=== PATIENT | female | born 1995 | race Caucasian/White ===

== ENCOUNTER 2016-07-30 13:44 | Emergency (ER) | payer OTHER ==
--- NOTE | 2016-07-30 13:57 | EDPHY ---
H & P Stated Complaint: SVT, CP HPI/ROS: HPI CHIEF COMPLAINT: SVT, chest discomfort HISTORY OF PRESENT ILLNESS: This patient very pleasant 21-year-old female, presents emergency room with palpitations and chest discomfort. Patient tells me that she has longstanding history of SVT she often gets SVT once a week and it resolved on its own. She has seen a fell cutter for this and was recommended to be placed on a beta ángel however she declined to take the medication. She tells me that she has SVT once a week sometimes twice a week and is self-resolving it usually lasts 30 minutes to 2 hours. Patient tells me that she was at work she works as a intermodal dispatcher she was seated she developed SVT for 2 hours it resolved on its own however during the episode of SVT she had discomfort in her chest. She describes initially as a discomfort checked the pressure in her chest however then developed significant sharp stabbing pain. It is since resolved. She decided to come to the emergency room due to discomfort and chest she does not usually have with her SVT. No history of PE or DVT. No history recent illness. No history of fever. No cough, no hemoptysis. Does not have pleuritic pain. Past Medical History: SVT Past Surgical History: no recent surgery Social History: Denies daily use of drugs alcohol tobacco products, works as a intermodal dispatcher [employer] [facility] Family History: noncontributory ROS REVIEW OF SYSTEMS: A comprehensive 10 point review of systems is otherwise negative aside from elements mentioned in the history of present illness. Exam Constitutional appears well nontoxic, triage nursing summary reviewed, vital signs reviewed, awake/alert. Eyes normal conjunctivae and sclera, EOMI, PERRLA. HENT normal inspection, atraumatic, moist mucus membranes, no epistaxis, neck supple/ no meningismus, no raccoon eyes. Respiratory clear to auscultation bilaterally, normal breath sounds, no respiratory distress, no wheezing. Cardiovascular rate normal, regular rhythm, no murmur, no edema, distal pulses normal. Gastrointestinal soft, non-tender, no rebound, no guarding, normal bowel sounds, no distension, no pulsatile mass. Genitourinary no CVA tenderness. Musculoskeletal no midline vertebral tenderness, full range of motion, no calf swelling, no tenderness of extremities, no meningismus, good pulses, neurovascularly intact. Skin pink, warm, & dry, no rash, skin atraumatic. Neurologic awake, alert and oriented x 3, AAOx3, moves all 4 extremities equally, motor intact, sensory intact, CN II-XII intact, normal cerebellar, normal vision, normal speech. Psychiatric normal mood/affect. Heme/Lymph/Immune no lymphadenopathy. Differential Diagnosis: includes but is not limited to in a particular order SVT , pneumonia, pneumothorax, pulmonary embolism, atypical chest pain, soft gel spasm, gastritis, esophagitis, doubt acute coronary syndrome Medical Decision Making: Patient had an IV established will obtain blood work, patient will have a chest x-ray, D-dimer, troponin, EKG. She be placed on full school lunch monitor. She is not having chest pain at this time. No evidence SVT at this time. Re-evaluation: EKG interpretation by me on record in [facility] system. Impression time of EKG is 1402, this is sinus rhythm rate of 81 no acute ischemic changes specifically no ST elevation, ST depression, T-wave abnormalities prolonged intervals or signs of cardiac arrhythmia. 1522: re-examination at this time patient is resting comfortably. She has been on school lunch monitor for the entire time she has been in the emergency room there has been no evidence of SVT. Re-examination at this time she has no chest pain or shortness of breath. Blood work is reassuring with a negative D- dimer normal electrolytes. EKG nonischemic in no signs of arrhythmia. ED x-ray chest one view: Negative for acute cardiopulmonary disease. Image interpreted by myself. 1522: re-examination at this time she is resting comfortably no complaints no chest pain no shortness of breath no pleuritic pain EKG, troponin, D-dimer, chest x-ray reviewed and are negative. Do recommend she follows up with Cardiology outpatient for SVT possible Holter monitor possible beta-ángel. She agrees with this plan. She is comfortable being discharged however she understands to return to the ER she develops severe chest pain shortness of breath nausea vomiting or fever. Source: Patient - Personal History Tetanus Vaccine Date: WITHIN 10 YRS - Medical/Surgical History Hx Asthma: No Hx Chronic Respiratory Disease: No Hx Diabetes: No Hx Cardiac Disease: No Hx Renal Disease: No Hx Cirrhosis: No Hx Alcoholism: No Hx HIV/AIDS: No Hx Splenectomy or Spleen Trauma: No Other PMH: anxiety, SVT - Social History Smoking Status: Never smoked Constitutional: Initial Vital Signs Temperature (C) 36.9 C 07/30/16 13:50 Heart Rate 86 07/30/16 13:50 Respiratory Rate 18 07/30/16 13:50 Blood Pressure 125/76 H 07/30/16 13:50 O2 Sat (%) 96 07/30/16 13:50 O2 Delivery Mode Room Air Allergies/Adverse Reactions: No Known Allergies Allergy (Verified 03/31/14 16:58) Home Medications: Medication Instructions Recorded NK [No Known Home Meds] 03/31/14 Medical Decision Making - Data Points Laboratory Results: Laboratory Results 07/30/16 14:20 07/30/16 14:20 07/30/16 07/30/16 07/30/16 14:20 14:20 14:20 WBC RBC Hgb Hct MCV MCH MCHC RDW Plt Count MPV Neut % (Auto) Lymph % (Auto) [place] % (Auto) Eos % (Auto) Baso % (Auto) Nucleat RBC Rel Count Absolute Neuts (auto) Absolute Lymphs (auto) Absolute Monos (auto) Absolute Eos (auto) Absolute Basos (auto) Absolute Nucleated RBC Immature Gran % Immature Gran # D-Dimer < 0.27 ug/mLFEU ug/mLFEU (0.00-0.50) Sodium 142 mEq/L mEq/L (134-144) Potassium 4.1 mEq/L mEq/L (3.5-5.2) Chloride 107 mEq/L mEq/L (97-110) Carbon Dioxide 21 mEq/l L mEq/l (22-31) Anion Gap 14 mEq/L mEq/L (8-16) BUN 15 mg/dL mg/dL (7-23) Creatinine 0.8 mg/dL mg/dL (0.6-1.0) Estimated GFR > 60 Glucose 90 mg/dL mg/dL (70-100) Calcium 10.2 mg/dL mg/dL (8.5-10.4) Magnesium 2.0 mg/dL mg/dL (1.6-2.3) Total Bilirubin 0.5 mg/dL mg/dL (0.1-1.4) Conjugated Bilirubin 0.4 mg/dL mg/dL (0.0-0.5) Unconjugated Bilirubin 0.1 mg/dL mg/dL (0.0-1.1) AST 21 IU/L IU/L (14-46) ALT 30 IU/L IU/L (9-52) Alkaline Phosphatase 60 IU/L IU/L (38-126) Creatine Kinase 137 IU/L IU/L (0-156) CK-MB (CK-2) Fraction 0.39 ng/mL ng/mL (0-3.19) Troponin I < 0.012 ng/mL ng/mL (0-0.034) NT-Pro-B Natriuret Pep 30 pg/mL pg/mL (0-125) Total Protein 8.1 g/dL g/dL (6.3-8.2) Albumin 4.9 g/dL g/dL (3.5-5.0) Lipase 132.0 IU/L IU/L (23-300) Beta HCG, Qual NEGATIVE 07/30/16 14:20 WBC 10.57 10^3/uL H 10^3/uL (3.80-9.50) RBC 4.72 10^6/uL 10^6/uL (4.18-5.33) Hgb 14.6 g/dL g/dL (12.6-16.3) Hct 41.7 % % (38.0-47.0) MCV 88.3 fL fL (81.5-99.8) MCH 30.9 pg pg (27.9-34.1) MCHC 35.0 g/dL g/dL (32.4-36.7) RDW 12.2 % % (11.5-15.2) Plt Count 281 10^3/uL 10^3/uL (150-400) MPV 10.4 fL fL (8.7-11.7) Neut % (Auto) 79.6 % H % (39.3-74.2) Lymph % (Auto) 13.9 % L % (15.0-45.0) [place] % (Auto) 5.5 % % (4.5-13.0) Eos % (Auto) 0.3 % L % (0.6-7.6) Baso % (Auto) 0.4 % % (0.3-1.7) Nucleat RBC Rel Count 0.0 % % (0.0-0.2) Absolute Neuts (auto) 8.42 10^3/uL H 10^3/uL (1.70-6.50) Absolute Lymphs (auto) 1.47 10^3/uL 10^3/uL (1.00-3.00) Absolute Monos (auto) 0.58 10^3/uL 10^3/uL (0.30-0.80) Absolute Eos (auto) 0.03 10^3/uL 10^3/uL (0.03-0.40) Absolute Basos (auto) 0.04 10^3/uL 10^3/uL (0.02-0.10) Absolute Nucleated RBC 0.00 10^3/uL 10^3/uL (0-0.01) Immature Gran % 0.3 % % (0.0-1.1) Immature Gran # 0.03 10^3/uL 10^3/uL (0.00-0.10) D-Dimer Sodium Potassium Chloride Carbon Dioxide Anion Gap BUN Creatinine Estimated GFR Glucose Calcium Magnesium Total Bilirubin Conjugated Bilirubin Unconjugated Bilirubin AST ALT Alkaline Phosphatase Creatine Kinase CK-MB (CK-2) Fraction Troponin I NT-Pro-B Natriuret Pep Total Protein Albumin Lipase Beta HCG, Qual Medications Given: Discontinued Medications Sodium Chloride (Ns) 1,000 mls @ 0 mls/hr IV ONCE ONE PRN Reason: Wide Open Stop: 07/30/16 14:00 Last Admin: 07/30/16 14:29 Dose: 1,000 mls Departure - Departure Disposition: Home, Routine, Self-Care Clinical Impression: Palpitations Condition: Good Instructions: Palpitations (ED) Additional Instructions: 1. return to the emergency room if he develops any worsening symptoms questions or concerns includes worsening pain fever shortness of breath vomiting. 2. Stay well-hydrated. 3. Please follow up with Cardiology outpatient. Referrals: Roya Sosa MD [Primary Care Provider] - As per Instructions Ivelisse Baker MD [Medical Doctor] - As per Instructions
[2016-07-30] MEDS ORDERED: NS 1,000 ML IV ONE (13:59)
--- NOTE | 2016-07-30 14:04 | CPEKG ---
Heart Rate: 81 RR Interval: 741 P-R Interval: 124 QRSD Interval: 82 QT Interval: 388 QTC Interval: 451 P [place]: 47 QRS [place]: 68 T Wave [place]: 37 EKG Severity - NORMAL ECG - EKG Impression: SINUS RHYTHM Electronically Signed By: Aureliano Sandoval 30-Jul-2016 21:17:30
[2016-07-30 14:29] LABS: % IMMATURE GRANULYOCYTES 0.3 % (0.0-1.1); ABSOLUTE IMMATURE GRANULOCYTES 0.03 10^3/uL (0.00-0.10); ADD DIFF? NO; ADD MORPH? NO; ADD SCAN? NO; ATYPICAL LYMPHOCYTE FLAG 0 (0-99); FRAGMENT RBC FLAG 0 (0-99); HEMATOCRIT 41.7 % (38.0-47.0); HEMOGLOBIN 14.6 g/dL (12.6-16.3); LEFT SHIFT FLG 0 (0-99); LIPEMIA HEMOLYSIS FLAG 90 (0-99); MEAN CELL HEMOGLOBIN 30.9 pg (27.9-34.1); MEAN CELL VOLUME 88.3 fL (81.5-99.8); MEAN PLATELET VOLUME 10.4 fL (8.7-11.7); PLATELET CLUMPS FLAG 0 (0-99); PLATELET COUNT 281 10^3/uL (150-400); RED BLOOD CELL COUNT 4.72 10^6/uL (4.18-5.33); RED CELL DISTRIBUTION WIDTH 12.2 % (11.5-15.2)
[2016-07-30 14:44] LABS: ALANINE AMINOTRANSFERASE 30 IU/L (9-52); ALBUMIN 4.9 g/dL (3.5-5.0); ALKALINE PHOSPHATASE 60 IU/L (38-126); ANION GAP 14 mEq/L (8-16); ASPARTATE AMINOTRANSFERASE 21 IU/L (14-46); BILIRUBIN,TOTAL 0.5 mg/dL (0.1-1.4); BILIRUBIN-CONJUGATED 0.4 mg/dL (0.0-0.5); BILIRUBIN-UNCONJUGATED 0.1 mg/dL (0.0-1.1); CALCIUM 10.2 mg/dL (8.5-10.4); CARBON DIOXIDE 21 mEq/l (22-31); CHLORIDE 107 mEq/L (97-110); CREATININE 0.8 mg/dL (0.6-1.0); GLOMERULAR FILTRATION RATE > 60; GLUCOSE 90 mg/dL (70-100); POTASSIUM 4.1 mEq/L (3.5-5.2); SODIUM 142 mEq/L (134-144); TOTAL PROTEIN 8.1 g/dL (6.3-8.2)
[2016-07-30 14:57] LABS: CREATINE KINASE-MB FRACTION 0.39 ng/mL (0-3.19); TROPONIN I < 0.012 ng/mL (0-0.034)
[2016-07-30 15:37] VITALS: BP 134/76; PULSE 79; RESP 18; TEMP 98.2; O2SAT 100
== END 2016-07-30 15:37 | disposition home or self-care (01) ==
DX: R00.2 Palpitations (principal)